=== PATIENT | female | born 1980 | race American Indian/Alaskan Native ===

== ENCOUNTER 2016-05-17 22:57 | Emergency (ER) | payer SELFPAY ==
[2016-05-17] MEDS ORDERED: TYLENOL ONE (23:41)
[2016-05-17] MEDS ORDERED: CATAPRES ONE (23:41)
[2016-05-18] MEDS ORDERED: CATAPRES PO ONE (00:25)
[2016-05-18] MEDS ORDERED: TYLENOL PO ONE (00:25)
[2016-05-18 00:52] LABS: Basophils % (Auto) 0.5 % (0.0-1.8); Eosinophils % (Auto) 1.8 % (0.0-4.3); Hematocrit 30.4 % (30.3-42.9); Hemoglobin 9.3 gm/dl (10.1-14.3); Mean Corpuscular HGB Conc 31 % (30-34); Mean Corpuscular Volume 76 fl (79-97); Platelet Count 230 K/mm3 (140-440); Red Blood Count 3.99 M/mm3 (3.65-5.03); White Blood Count 12.8 K/mm3 (4.5-11.0)
[2016-05-18 00:58] LABS: Mean Corpuscular Hemoglobin 23 pg (28-32)
[2016-05-18 01:16] LABS: Anion Gap 18 mmol/L; Blood Urea Nitrogen 7 mg/dL (7-17); Calcium 8.8 mg/dL (8.4-10.2); Carbon Dioxide 26 mmol/L (22-30); Chloride 102.3 mmol/L (98-107); Glucose 94 mg/dL (65-100); Potassium 4.1 mmol/L (3.6-5.0); Sodium 142 mmol/L (137-145)
--- NOTE | 2016-05-18 06:30 | Emergency Department Report ---
ED General Adult HPI - General Chief complaint: Sore Throat Stated complaint: SORE THROAT/FEVER/N/V/BODYACHES Time Seen by Provider: 05/18/16 06:29 Source: patient Mode of arrival: Ambulatory Limitations: No Limitations - History of Present Illness Initial comments: Patient complains of fever and myalgias last 2 days. She's been noncompliant with her blood pressure regimen. She has a sore throat. She denies difficulty in breathing. She is able to swallow. She's had no drooling, no rigors or chills. She denies any other ongoing medical problems. -: Gradual, days(s) Location: mouth (sore throat) Radiation: non-radiation Severity scale (0 -10): 0 Quality: aching Consistency: intermittent Improves with: none Worsens with: other (swallowing) Associated Symptoms: denies other symptoms Treatments Prior to Arrival: none - Related Data Home Medications Medication Instructions Recorded Confirmed Last Taken Methyldopa [Aldomet] mg PO BID 06/22/13 06/22/13 06/21/13 18:00 Previous Rx's Medication Instructions Recorded Last Taken Type Erythromycin [Erythromycin Ophth 1 cm OU QID #1 tube 06/22/13 Unknown Rx Oint] Neomy/Polymyx B/Hc (Otic) Soln 4 drops OT TID #1 bottle 06/22/13 Unknown Rx [Cortisporin (Otic) Soln] HYDROcodone/APAP 5-325 [[place] 1 - 2 each PO Q4-6H PRN #15 tablet 07/07/13 Unknown Rx 5/325 mg] Prednisone [Prednisone 10 mg 10 mg PO .TAPER #1 tab.ds.pk 07/07/13 Unknown Rx (6-Day Pack, 21 Tabs)] Azithromycin [Zithromax TAB] 500 mg PO QDAY #1 packet 05/18/16 Unknown Rx HYDROcodone/APAP 5-325 [[place] 1 each PO Q6HR PRN #14 tablet 05/18/16 Unknown Rx 5/325] Labetalol [Normodyne TAB] 100 mg PO BID #60 tablet 05/18/16 Unknown Rx Lisinopril/Hydrochlorothiazide 1 tab PO QDAY #30 tablet 05/18/16 Unknown Rx [Zestoretic 10-12.5 mg] Allergies Allergy/AdvReac Type Severity Reaction Status Date / Time acetaminophen [From Tylenol] Allergy Itching Verified 07/07/13 18:24 codeine Allergy Itching Verified 07/07/13 18:24 Penicillins Allergy Hives Verified 07/07/13 18:24 ED Review of Systems ROS: Stated complaint: SORE THROAT/FEVER/N/V/BODYACHES Other details as noted in HPI Constitutional: fever. denies: chills Eyes: denies: eye pain, eye discharge, vision change ENT: as per HPI, throat pain. denies: ear pain Respiratory: denies: cough, shortness of breath, wheezing Cardiovascular: denies: chest pain, palpitations Endocrine: no symptoms reported Gastrointestinal: denies: abdominal pain, nausea, diarrhea Genitourinary: denies: urgency, dysuria, discharge Musculoskeletal: denies: back pain, joint swelling, arthralgia Skin: denies: rash, lesions Neurological: denies: headache, weakness, paresthesias Psychiatric: denies: anxiety, depression Hematological/Lymphatic: denies: easy bleeding, easy bruising ED Past Medical Hx - Past Medical History Previous Medical History?: Yes Hx Hypertension: Yes Hx Kidney Stones: Yes Hx Asthma: Yes Additional medical history: mouth ulcers - Surgical History Past Surgical History?: Yes Additional Surgical History: kidney stone surgery x 2, oral ulcer biopsy (1998) , D&C - Social History Smoking Status: Current Every Day Smoker Substance Use Type: None - Medications Home Medications: Home Medications Medication Instructions Recorded Confirmed Last Taken Type Erythromycin [Erythromycin Ophth 1 cm OU QID #1 tube 06/22/13 Unknown Rx Oint] Methyldopa [Aldomet] mg PO BID 06/22/13 06/22/13 06/21/13 18:00 History Neomy/Polymyx B/Hc (Otic) Soln 4 drops OT TID #1 bottle 06/22/13 Unknown Rx [Cortisporin (Otic) Soln] HYDROcodone/APAP 5-325 [[place] 1 - 2 each PO Q4-6H PRN #15 tablet 07/07/13 Unknown Rx 5/325 mg] Prednisone [Prednisone 10 mg 10 mg PO .TAPER #1 tab.ds.pk 07/07/13 Unknown Rx (6-Day Pack, 21 Tabs)] Azithromycin [Zithromax TAB] 500 mg PO QDAY #1 packet 05/18/16 Unknown Rx HYDROcodone/APAP 5-325 [[place] 1 each PO Q6HR PRN #14 tablet 05/18/16 Unknown Rx 5/325] Labetalol [Normodyne TAB] 100 mg PO BID #60 tablet 05/18/16 Unknown Rx Lisinopril/Hydrochlorothiazide 1 tab PO QDAY #30 tablet 05/18/16 Unknown Rx [Zestoretic 10-12.5 mg] ED Physical Exam - General Limitations: No Limitations General appearance: alert, in no apparent distress - Head Head exam: Present: atraumatic, normocephalic - Eye Eye exam: Present: normal appearance, PERRL, EOMI. Absent: scleral icterus - ENT ENT exam: Present: mucous membranes dry, other (very poor visualization of the throat. ) - Neck Neck exam: Present: normal inspection, lymphadenopathy. Absent: tenderness, meningismus - Respiratory Respiratory exam: Present: normal lung sounds bilaterally. Absent: respiratory distress - Cardiovascular Cardiovascular Exam: Present: regular rate, normal rhythm. Absent: systolic murmur, diastolic murmur, rubs, gallop - GI/Abdominal GI/Abdominal exam: Present: soft, normal bowel sounds. Absent: distended, tenderness, guarding, rebound, rigid - Extremities Exam Extremities exam: Present: normal inspection - Back Exam Back exam: Present: normal inspection. Absent: CVA tenderness (R), CVA tenderness (L), muscle spasm, paraspinal tenderness, vertebral tenderness - Neurological Exam Neurological exam: Present: alert, oriented X3, CN II-XII intact. Absent: motor sensory deficit - Psychiatric Psychiatric exam: Present: normal affect, normal mood - Skin Skin exam: Present: warm, dry, intact, normal color. Absent: rash ED Course Vital Signs 05/17/16 05/17/16 05/18/16 23:30 23:45 00:34 Temperature 99.2 F Pulse Rate 106 H 106 H 106 H Respiratory 20 18 Rate Blood Pressure 211/125 197/119 Blood Pressure 211/125 [Right] O2 Sat by Pulse 100 100 Oximetry 05/18/16 05/18/16 05/18/16 05:48 05:53 06:00 Temperature 98.8 F Pulse Rate 97 H 97 H Respiratory 19 18 Rate Blood Pressure 155/108 Blood Pressure 169/102 [Right] O2 Sat by Pulse 96 98 98 Oximetry 05/18/16 05/18/1617 06:01 06:30 07:46 Temperature Pulse Rate Respiratory Rate Blood Pressure 155/108 137/107 Blood Pressure [Right] O2 Sat by Pulse 99 98 97 Oximetry 05/18/16 05/18/16 05/18/16 07:50 08:00 08:10 Temperature Pulse Rate 90 90 99 H Respiratory 14 15 20 Rate Blood Pressure 137/107 224/86 200/125 Blood Pressure [Right] O2 Sat by Pulse 91 91 77 L Oximetry 05/18/16 05/18/16 05/18/16 08:20 08:30 08:36 Temperature Pulse Rate 91 H 85 86 Respiratory 15 16 Rate Blood Pressure 200/125 200/125 200/125 Blood Pressure [Right] O2 Sat by Pulse 96 94 Oximetry 05/18/16 05/18/16 08:40 08:50 Temperature Pulse Rate 82 87 Respiratory 14 15 Rate Blood Pressure 200/125 177/92 Blood Pressure [Right] O2 Sat by Pulse 100 100 Oximetry - Reevaluation(s) Reevaluation #1: Patient received IV antibiotics, fluids and blood pressure management. She stated that she felt well enough to go home. She looked better hydrated. She appears nontoxic. She meets criteria for outpatient disposition. 05/18/16 09:13 ED Medical Decision Making - Lab Data Result diagrams: 05/18/16 00:34 05/18/16 00:34 Laboratory Results - last 24 hr 05/18/16 05/18/16 05/18/16 00:34 00:34 00:34 WBC 12.8 H RBC 3.99 Hgb 9.3 L Hct 30.4 MCV 76 L MCH 23 L MCHC 31 RDW 18.0 H Plt Count 230 Lymph % (Auto) 11.8 L [place] % (Auto) 8.8 H Eos % (Auto) 1.8 Baso % (Auto) 0.5 Lymph # 1.5 [place] # 1.1 H Eos # 0.2 Baso # 0.1 Seg Neutrophils % 77.1 H Seg Neutrophils # 9.9 H Sodium 142 Potassium 4.1 Chloride 102.3 Carbon Dioxide 26 Anion Gap 18 BUN 7 Creatinine 0.5 L Estimated GFR > 60 BUN/Creatinine Ratio 14.00 Glucose 94 Calcium 8.8 HCG, Qual Negative - EKG Data -: EKG Interpreted by [place] EKG shows normal: sinus rhythm, axis, intervals, QRS complexes, ST-T waves Rate: normal, tachycardia - EKG Data Interpretation: no acute changes - Radiology Data Radiology results: report reviewed interpreted by me: CT showed no evidence of abscess or deep neck infection no necrotic nodes. Critical care attestation.: If time is entered above; I have spent that time in minutes in the direct care of this critically ill patient, excluding procedure time. ED Disposition Clinical Impression: Uncontrolled hypertension Pharyngitis Qualifiers: Pharyngitis/tonsillitis etiology: unspecified etiology Qualified Code(s): J02.9 - Acute pharyngitis, unspecified Disposition: DISCHARGED TO HOME OR SELFCARE Is pt being admited?: No Does the pt Need Aspirin: No Condition: Stable Instructions: Hypertension (ED), Pharyngitis (ED) Additional Instructions: Adequate oral fluids is required. Rx for your blood pressure,, antibiotic and pain management. Return any worsening symptoms whatsoever. Medical follow-up is required. Prescriptions: Azithromycin [Zithromax TAB] 500 mg PO QDAY #1 packet HYDROcodone/APAP 5-325 [[place] 5/325] 1 each PO Q6HR PRN #14 tablet PRN Reason: Pain Labetalol [Normodyne TAB] 100 mg PO BID #60 tablet Lisinopril/Hydrochlorothiazide [Zestoretic 10-12.5 mg] 1 tab PO QDAY #30 tablet Referrals: PRIMARY CARE, [Primary Care Provider] - 3-5 Days [facility] [Provider Group] - 2-3 Days Time of Disposition: 09:20
[2016-05-18] MEDS ORDERED: CLEOCIN 600 MG/50 mL 600 MG/50 ML BAG IV ONE (06:37)
[2016-05-18] MEDS ORDERED: NACL 0.9% 1000 ML 1,000 ML IV ONE (06:38)
--- NOTE | 2016-05-18 07:48 | Cat Scan Report ---
CT NECK WITH CONTRAST: HISTORY: Swelling, evaluate for deep neck infection. TECHNIQUE: Helical CT following IV contrast. Sagittal and coronal reformatted images. FINDINGS: There are a few mildly enlarged bilateral jugular lymph nodes measuring up to 1.8 cm. No necrotic lymph nodes, parapharyngeal abscess or swelling is appreciated. The parotid and submandibular glands are normal. The carotid sheaths are intact. The thyroid gland is normal. The glottic structures are normal. The airway is patent. Strap musculature is unremarkable. Hyoid bone and thyroid cartilage are intact. There is mild mucosal thickening in the inferior maxillary sinuses, left greater than right. The remaining visualized sinuses and mastoid air cells are well-aerated. The imaged brain is unremarkable. The lung apices are clear. IMPRESSION: Mildly enlarged cervical lymph nodes which are probably reactive in nature. No abscess or necrotic lymph nodes identified. Mild chronic maxillary sinus disease.
[2016-05-18] MEDS ORDERED: NORMODYNE IV ONE ×2 (08:24→08:27)
[2016-05-18 09:39] VITALS: BP 175/91
== END 2016-05-18 09:39 | disposition home or self-care (01) ==
LOC: ED 22:57
DX: I10 Essential (primary) hypertension (principal); J02.9 Acute pharyngitis, unspecified; J45.909 Unspecified asthma, uncomplicated; F17.200 Nicotine dependence, unspecified, uncomplicated; Z88.0 Allergy status to penicillin; Z88.6 Allergy status to analgesic agent; Z88.8 Allergy status to other drugs, medicaments and biological substances
CPT/HCPCS: 36415; 70491; 80048; 84703; 85025; 87116; 87400; 87430; 93005; 93010; 96365; 96375; 99284; J7030; Q9967

== ENCOUNTER 2018-05-14 02:13 | Inpatient (IN) | payer MEDICAID ==
[2018-05-14] MEDS ORDERED: ASPIRIN PO ONE (02:29)
--- NOTE | 2018-05-14 02:56 | XRay Report ---
PROCEDURE: XR CHEST 1V AP TECHNIQUE: Single PA radiograph of the chest was obtained. HISTORY: Chest pain. COMPARISONS: None available. FINDINGS: Lung volumes mildly decreased. Subtle bibasilar opacities noted. Suggested mild blunting of right cos tophrenic angle. There is peribronchial thickening/cuffing noted centrally. Cardiac and mediastinal c ontours within normal limits. No subdiaphragmatic free air. IMPRESSION: Mildly increased interstitial markings/peribronchial cuffing and probable small right pleural effusio n suggestive of underlying viral process. There is no lobar consolidation. This document is electronically signed by Alfred Medrano DO., May 14 2018 02:54:56 AM ET
[2018-05-14 03:28] LABS: Basophils % (Auto) 0.4 % (0.0-1.8); Eosinophils # (Auto) 0.2 K/mm3 (0.0-0.4); Eosinophils % (Auto) 1.9 % (0.0-4.3); Hematocrit 26.8 % (30.3-42.9); Hemoglobin 8.4 gm/dl (10.1-14.3); Lymphocytes # (Auto) 1.7 K/mm3 (1.2-5.4); Lymphocytes % (Auto) 20.4 % (13.4-35.0); Mean Corpuscular HGB Conc 31 % (30-34); Mean Corpuscular Volume 72 fl (79-97); Monocytes # (Auto) 0.7 K/mm3 (0.0-0.8); Monocytes % (Auto) 8.3 % (0.0-7.3); Platelet Count 233 K/mm3 (140-440); Red Blood Count 3.74 M/mm3 (3.65-5.03)
[2018-05-14 03:34] LABS: Red Cell Distribution Width 20.6 % (13.2-15.2)
[2018-05-14 03:52] LABS: BUN/Creatinine Ratio 20; Blood Urea Nitrogen 6 mg/dL (7-17); Calcium 9.1 mg/dL (8.4-10.2); Hemolysis Index 17
[2018-05-14] MEDS ORDERED: NORMODYNE IV ONE (04:00)
[2018-05-14 04:37] LABS: INR 0.91 (0.87-1.13)
--- NOTE | 2018-05-14 05:33 | Ultrasound Report ---
PROCEDURE: US OB <= 14 WK FETUS ADD GEST TECHNIQUE: Limited transvaginal imaging was obtained of the pelvis for twin B HISTORY: abd pain COMPARISONS: None FINDINGS: There is a dichorionic diamniotic twin . Fetus B has a crown-rump length of 5.56 cm. This co rresponds to a 12 week 1 day IUP. The heartbeat is 173 BPM. IMPRESSION: Fetus B corresponds to 12 week 1 day IUP. The heartbeat is 173 BPM.. This document is electronically signed by James Leal MD., May 14 2018 05:30:38 AM ET
--- NOTE | 2018-05-14 05:35 | Ultrasound Report ---
PROCEDURE: US OB <= 14 WEEKS FETUS TECHNIQUE: Transabdominal imaging was obtained. HISTORY: abd pain COMPARISONS: None FINDINGS: There is a dichorionic diamniotic twin . For twin A, the crown-rump length is 53.5 mm corres ponding to a 12 week 0 day . The heartbeat is 173 BPM. The maternal ovaries are not se en. In some of is made of a fibroid in the lower uterine segment measuring 6.3 x 5.0 x 6.0 cm. The ma ternal ovaries not seen. IMPRESSION: Fetus a corresponds to a 12 week 0 day . The heart is 173 BPM. Incidental note is made of a fibroid in the lower uterine segment as described.. This document is electronically signed by James Leal MD., May 14 2018 05:33:00 AM ET
--- NOTE | 2018-05-14 05:37 | Ultrasound Report ---
PROCEDURE: US OB TRANSVAGINAL TECHNIQUE: Transvaginal imaging was obtained of the pelvis. HISTORY: abd pain COMPARISONS: None FINDINGS: There is a twin dichorionic diamniotic with 2 discrete gestational sacs. Fetus a correspond s to a 12 week 0 day IUP with fetus B corresponding to a 12 week 1 day IUP. The heart rate is 1 73 for both twins. There is no evidence of subchorionic hemorrhage. Free fluid is not seen in the pel vis. The maternal ovaries are not identified. There is a fibroid in the lower uterine segment measuri ng 6 cm in diameter. IMPRESSION: Dichorionic diamniotic twin corresponding to 12 weeks 1 day as described. Normal hear t rate of 173 BPM. Hypoechoic fibroid in the lower uterine segment noted. This document is electronically signed by James Leal MD., May 14 2018 05:34:55 AM ET
--- NOTE | 2018-05-14 05:46 | Emergency Department Report ---
ED Chest Pain HPI - General Chief Complaint: Chest Pain Stated Complaint: HEADACHE/CHEST PAIN Time Seen by Provider: 05/14/18 03:45 Source: patient Mode of arrival: Ambulatory Limitations: No Limitations - History of Present Illness Initial Comments: 38-year-old female with history of hypertension presents to ED with sharp left- sided chest pain, worse since yesterday. Patient reports mild shortness of breath. States pain radiates into her left arm. Patient states she has been having intermittent chest pain with exertion and dyspnea on exertion recently. Patient also reports headache, however, has been noncompliant with her amlodipine. Patient states she is currently , however does not know how far along she is at this time. States her menstrual periods are always irregular. Denies leg pain or swelling. Reports tobacco use. PCP: Shane Shi MD Complaint: chest pain -: days(s) (2) Onset: during exertion Pain Location: left chest Pain Radiation: LUE Severity: moderate Severity scale (0 -10): 8 Quality: sharp Consistency: intermittent Improves With: rest Worsens With: exertion re: dyspnea. denies: vomting, diaphoresis Other Symptoms: denies: cough, fever, leg swelling - Related Data Home Medications Medication Instructions Recorded Confirmed Last Taken Methyldopa [Aldomet] mg PO BID 06/22/13 06/22/13 06/21/13 18:00 Previous Rx's Medication Instructions Recorded Last Taken Type Erythromycin [Erythromycin Ophth 1 cm OU QID #1 tube 06/22/13 Unknown Rx Oint] Neomy/Polymyx B/Hc (Otic) Soln 4 drops OT TID #1 bottle 06/22/13 Unknown Rx [Cortisporin (Otic) Soln] HYDROcodone/APAP 5-325 [[place] 1 - 2 each PO Q4-6H PRN #15 tablet 07/07/13 Unknown Rx 5/325 mg] Prednisone [Prednisone 10 mg 10 mg PO .TAPER #1 tab.ds.pk 07/07/13 Unknown Rx (6-Day Pack, 21 Tabs)] Azithromycin [Zithromax TAB] 500 mg PO QDAY #1 packet 05/18/16 Unknown Rx HYDROcodone/APAP 5-325 [[place] 1 each PO Q6HR PRN #14 tablet 05/18/16 Unknown Rx 5/325] Labetalol [Normodyne TAB] 100 mg PO BID #60 tablet 05/18/16 Unknown Rx Lisinopril/Hydrochlorothiazide 1 tab PO QDAY #30 tablet 05/18/16 Unknown Rx [Zestoretic 10-12.5 mg] Allergies Allergy/AdvReac Type Severity Reaction Status Date / Time acetaminophen [From Tylenol] Allergy Itching Verified 05/14/18 04:13 codeine Allergy Itching Verified 05/14/18 04:13 oxycodone [From Percocet] Allergy Rash Verified 05/14/18 04:13 Penicillins Allergy Hives Verified 05/14/18 04:13 Heart Score - HEART Score History: Moderately suspicious EKG: Non-specific Age: < 45 Risk factors: > 3 risk factors or hx of atherosclerotic disease Troponin: < normal limit HEART Score: 4 ED Review of Systems ROS: Stated complaint: HEADACHE/CHEST PAIN Other details as noted in HPI Comment: All other systems reviewed and negative Respiratory: shortness of breath Cardiovascular: chest pain Gastrointestinal: denies: abdominal pain Musculoskeletal: other (denies leg pain or swelling) Neurological: headache ED Past Medical Hx - Past Medical History Previous Medical History?: Yes Hx Hypertension: Yes Hx Kidney Stones: Yes Hx Asthma: Yes Additional medical history: mouth ulcers - Surgical History Past Surgical History?: Yes Additional Surgical History: kidney stone surgery x 2, oral ulcer biopsy (1998), D&C - Social History Smoking Status: Current Every Day Smoker Substance Use Type: None - Medications Home Medications: Home Medications Medication Instructions Recorded Confirmed Last Taken Type Erythromycin [Erythromycin Ophth 1 cm OU QID #1 tube 06/22/13 Unknown Rx Oint] Methyldopa [Aldomet] mg PO BID 06/22/13 06/22/13 06/21/13 18:00 History Neomy/Polymyx B/Hc (Otic) Soln 4 drops OT TID #1 bottle 06/22/13 Unknown Rx [Cortisporin (Otic) Soln] HYDROcodone/APAP 5-325 [[place] 1 - 2 each PO Q4-6H PRN #15 tablet 07/07/13 Unknown Rx 5/325 mg] Prednisone [Prednisone 10 mg 10 mg PO .TAPER #1 tab.ds.pk 07/07/13 Unknown Rx (6-Day Pack, 21 Tabs)] Azithromycin [Zithromax TAB] 500 mg PO QDAY #1 packet 05/18/16 Unknown Rx HYDROcodone/APAP 5-325 [[place] 1 each PO Q6HR PRN #14 tablet 05/18/16 Unknown Rx 5/325] Labetalol [Normodyne TAB] 100 mg PO BID #60 tablet 05/18/16 Unknown Rx Lisinopril/Hydrochlorothiazide 1 tab PO QDAY #30 tablet 05/18/16 Unknown Rx [Zestoretic 10-12.5 mg] ED Physical Exam - General Limitations: No Limitations General appearance: alert, in no apparent distress, obese - Head Head exam: Present: atraumatic, normocephalic - Eye Eye exam: Present: normal appearance - ENT ENT exam: Present: mucous membranes moist - Neck Neck exam: Present: normal inspection - Respiratory Respiratory exam: Present: normal lung sounds bilaterally. Absent: respiratory distress - Cardiovascular Cardiovascular Exam: Present: regular rate, normal rhythm - GI/Abdominal GI/Abdominal exam: Present: soft. Absent: distended - Extremities Exam Extremities exam: Absent: pedal edema, calf tenderness - Neurological Exam Neurological exam: Present: alert, oriented X3, CN II-XII intact. Absent: motor sensory deficit - Psychiatric Psychiatric exam: Present: normal affect, normal mood - Skin Skin exam: Present: warm, dry, intact, normal color ED Course Vital Signs 05/14/18 05/14/18 05/14/18 02:24 04:41 05:40 Temperature 98.6 F 98.7 F Pulse Rate 109 H 109 H 89 Respiratory 18 18 Rate Blood Pressure 188/99 204/105 Blood Pressure 175/80 [Left] O2 Sat by Pulse 98 98 Oximetry ED Medical Decision Making - Lab Data Result diagrams: 05/14/18 03:20 05/14/18 03:20 - EKG Data -: EKG Interpreted by [place] EKG shows normal: sinus rhythm, axis, intervals, QRS complexes, ST-T waves Rate: tachycardia (rate 104) - EKG Data Interpretation: nonspecific ST-T wave gila - Radiology Data Radiology results: report reviewed - Medical Decision Making 38-year-old female with uncontrolled hypertension presents to the ED with report of dyspnea on exertion, chest pain with exertion, worse over the last 2 days. Patient initially hypertensive, also reported headache, likely hypertensive headache. Neuro exam normal. EKG unremarkable, troponin normal. D-dimer is negative. Patient given labetalol which did improve her blood pressure. However due to the character of the patient's pain, body habitus, uncontrolled hypertension, and tobacco use, will admit to hospitalist, Dr Romero, for further chest pain workup. Patient has no chest pain at this time. Ultrasound was done which does show a normal twin gestation at 12 weeks with normal cardiac activity. Patient is not having any abdominal pain or vaginal bleeding at this time. Patient not considered to have preeclampsia as she is only 12 weeks and has a history of chronic hypertension that is uncontrolled. - Differential Diagnosis ACS, hypertensive urgency, PE Critical care attestation.: If time is entered above; I have spent that time in minutes in the direct care of this critically ill patient, excluding procedure time. ED Disposition Clinical Impression: Twin gestation in first trimester, Chest pain, Hypertensive urgency Disposition: OP ADMIT IP TO THIS HOSP Is pt being admited?: Yes Condition: Stable Instructions: Chest Pain (ED) Time of Disposition: 05:56
[2018-05-14] MEDS ORDERED: ZOFRAN IV PRN (06:07)
[2018-05-14] MEDS ORDERED: SODIUM CHLORIDE FLUSH SYRINGE 10 ML IV PRN (06:07)
--- NOTE | 2018-05-14 06:16 | History and Physical Report ---
History of Present Illness Date of examination: 05/14/18 History of present illness: 38-year-old woman with a history of hypertension, asthma comes emergency room with complint of chest pain that started yesterday. She described the pain as a stabbing pain, constant, intensity 5/10, radiating to the left arm, cannot i dentify Marielos related factors. Admits to shortness of breath, nausea, no diaphoresis or palpitation. He is not taken her antihypertensive last 2 weeks, also complaining of a headache over the last 1-1/2 week Review of systems Constitutional: no weight loss, chills, fever Ears, eyes, nose, mouth and throat: no nasal congestion, no nasal discharge, no sinus pressure, no vision change, no red eye. Neck: No neck pain or rigidity. Cardiovascular: no palpitations, +chest pain Respiratory: no cough,+ shortness of breath Gastrointestinal: no hematochezia, abdominal pain Genitourinary : no frequency , no hematuria Musculoskeletal: no joint swelling or muscle ache Integumentary: no rash, no pruritis Neurological: no parathesias, no focal weakness Endocrine: no cold or heat intolerance, no polyuria or polydipsia Hematologic/Lymphatic: no easy bruising, no easy bleeding, no gland swelling Allergic/Immunologic: no urticaria, no angioedema. PAST MEDICAL HISTORY:hypertension, asthma PAST SURGICAL HISTORY: Surgery for kidney stone SOCIAL HISTORY: Denies alcohol, drugs, tobacco FAMILY HISTORY: Hypertension Medications and Allergies Allergies Allergy/AdvReac Type Severity Reaction Status Date / Time acetaminophen [From Tylenol] Allergy Itching Verified 05/14/18 04:13 codeine Allergy Itching Verified 05/14/18 04:13 oxycodone [From Percocet] Allergy Rash Verified 05/14/18 04:13 Penicillins Allergy Hives Verified 05/14/18 04:13 Home Medications Medication Instructions Recorded Confirmed Last Taken Type Erythromycin [Erythromycin Ophth 1 cm OU QID #1 tube 06/22/13 Unknown Rx Oint] Methyldopa [Aldomet] mg PO BID 06/22/13 06/22/13 06/21/13 18:00 History Neomy/Polymyx B/Hc (Otic) Soln 4 drops OT TID #1 bottle 06/22/13 Unknown Rx [Cortisporin (Otic) Soln] HYDROcodone/APAP 5-325 [[place] 1 - 2 each PO Q4-6H PRN #15 tablet 07/07/13 Unknown Rx 5/325 mg] Prednisone [Prednisone 10 mg 10 mg PO .TAPER #1 tab.ds.pk 07/07/13 Unknown Rx (6-Day Pack, 21 Tabs)] Azithromycin [Zithromax TAB] 500 mg PO QDAY #1 packet 05/18/16 Unknown Rx HYDROcodone/APAP 5-325 [[place] 1 each PO Q6HR PRN #14 tablet 05/18/16 Unknown Rx 5/325] Labetalol [Normodyne TAB] 100 mg PO BID #60 tablet 05/18/16 Unknown Rx Lisinopril/Hydrochlorothiazide 1 tab PO QDAY #30 tablet 05/18/16 Unknown Rx [Zestoretic 10-12.5 mg] Active Meds: Active Medications Enoxaparin Sodium (Lovenox) 30 mg SUB-Q QDAY [facility] Labetalol HCl (Normodyne) 100 mg PO BID [facility] Ondansetron HCl (Zofran) 4 mg IV Q4H PRN PRN Reason: Nausea And Vomiting Sodium Chloride (Sodium Chloride Flush Syringe 10 Ml) 10 ml IV BID [facility] Sodium Chloride (Sodium Chloride Flush Syringe 10 Ml) 10 ml IV PRN PRN PRN Reason: LINE FLUSH Exam - Physical Exam Narrative exam: General Apperance: The patient lying in bed, breathing comfortable HEENT: Normocephalic, atraumatic. Pupils equally round and reactive to light, EOMI, no sclericterus or JVD or thyromegaly or nodule. , no carotid bruit, mucous membranes moist, no exudate or erythema Heart: S1-S2, regular is rhythm Lungs: Clear to auscultation bilaterally, breathing comfortable Abdomen: Positive bowel sounds, soft, nontender, nondistended, no organomegaly Extremities: No edema cyanosis clubbing Skin: no rash, nodule, warm and dry Neuro: cranial nerves 2-12 intact, speech is fluent, motor/sensory intact - Constitutional Vitals: Temp Pulse Resp BP Pulse Ox 98.7 F 89 18 175/80 98 05/14/18 05:40 05/14/18 05:40 05/14/18 05:40 05/14/18 05:40 05/14/18 05:40 Results - Labs CBC & Chem 7: 05/14/18 03:20 05/14/18 03:20 Labs: Abnormal lab results 05/14/18 05/14/18 05/14/18 Range/Units 03:20 03:20 03:20 Hgb 8.4 L (10.1-14.3) gm/dl Hct 26.8 L (30.3-42.9) % MCV 72 L (79-97) fl MCH 22 L (28-32) pg RDW 20.6 H (13.2-15.2) % [place] % (Auto) 8.3 H (0.0-7.3) % Sodium 136 L (137-145) mmol/L Potassium 3.2 L (3.6-5.0) mmol/L BUN 6 L (7-17) mg/dL Creatinine 0.3 L (0.7-1.2) mg/dL Glucose 146 H (65-100) mg/dL HCG, Quant 303835 H (0-4) mIU/mL - Imaging and Cardiology EKG: report reviewed Chest x-ray: report reviewed Assessment and Plan Assessment Extensive urgency Chest pain secondary to #1 Plan Admit to medicine Check cardiac enzymes, echo, consult cardiology Start Multivitamin, oral labetalol DVT prophylaxis
[2018-05-14 07:31] LABS: Creatine Kinase MB 1.1 ng/mL (0.0-4.0)
[2018-05-14] MEDS ORDERED: NORMODYNE PO SCH (10:00)
[2018-05-14] MEDS ORDERED: LOVENOX SUB-Q SCH (10:00)
[2018-05-14] MEDS ORDERED: NORMODYNE ONE ×2 (10:07→15:31)
[2018-05-14] MEDS ORDERED: LOVENOX SUB-Q ONE (10:07)
[2018-05-14] MEDS: LOVENOX SUB-Q SCH (10:14)
--- NOTE | 2018-05-14 11:30 | Consultation ---
History of Present Illness Consult date: 05/14/18 Requesting physician: SUSAN ESPARZA Consult reason: chest pain History of present illness: The patient has a history of chronically uncontrolled hypertension. Yesterday morning, she developed precordial chest pressure radiating to her left upper arm and associated with headache. There is no nausea, vomiting, or shortness of breath. She claims that she found out that she was one week ago. Transvaginal ultrasound suggests a twin at 12 weeks gestation. Past History Past Medical History: hypertension, other (Asthma) Past Surgical History: Other (D & C; surgery for renal stones) Social history: smoking. denies: alcohol abuse Family history: denies: CAD Medications and Allergies Allergies Allergy/AdvReac Type Severity Reaction Status Date / Time acetaminophen [From Tylenol] Allergy Itching Verified 05/14/18 04:13 codeine Allergy Itching Verified 05/14/18 04:13 oxycodone [From Percocet] Allergy Rash Verified 05/14/18 04:13 Penicillins Allergy Hives Verified 05/14/18 04:13 Home Medications Medication Instructions Recorded Confirmed Last Taken Type No Known Home Medications [No 05/14/18 05/14/18 Unknown History Reported Home Medications] Active Meds: Active Medications Enoxaparin Sodium (Lovenox) 40 mg SUB-Q QDAY@1000 [facility] Last Admin: 05/14/18 10:14 Dose: 40 mg Documented by: Labetalol HCl (Normodyne) 100 mg PO BID [facility] Last Admin: 05/14/18 10:14 Dose: 100 mg Documented by: Ondansetron HCl (Zofran) 4 mg IV Q4H PRN PRN Reason: Nausea And Vomiting Sodium Chloride (Sodium Chloride Flush Syringe 10 Ml) 10 ml IV BID [facility] Sodium Chloride (Sodium Chloride Flush Syringe 10 Ml) 10 ml IV PRN PRN PRN Reason: LINE FLUSH Review of Systems Constitutional: no fever, no chills Ears, nose, mouth and throat: no ear pain, no ear discharge, no sore throat Cardiovascular: chest pain, no palpitations, no lightheadedness, no shortness of breath Respiratory: no cough, no hemoptysis, no shortness of breath Gastrointestinal: no nausea, no vomiting, no diarrhea, no constipation Genitourinary Female: no dysuria, no urinary frequency Rectal: no pain, no bleeding Musculoskeletal: no neck stiffness, no neck pain, no myalgias Integumentary: no rash, no pruritis Neurological: headaches, no weakness, no parathesias Endocrine: no cold intolerance, no heat intolerance Hematologic/Lymphatic: no easy bruising, no easy bleeding Allergic/Immunologic: no urticaria, no angioedema Physical Examination Vital Signs Temp Pulse Resp BP Pulse Ox 98.6 F 109 H 18 188/99 98 05/14/18 02:24 05/14/18 02:24 05/14/18 02:24 05/14/18 02:24 05/14/18 02:24 General appearance: no acute distress HEENT: Positive: EOMI, Normocephaly, Mucus Membranes Moist Neck: Positive: neck supple, trachea midline Cardiac: Positive: Reg Rate and Rhythm, S1/S2 Lungs: Positive: clear to auscultation Neuro: Positive: Grossly Intact Abdomen: Positive: Soft, Active Bowel Sounds. Negative: Tender Skin: Positive: Clear. Negative: Rash Musculoskeletal: Normal Range of Motion Extremities: Present: normal. Absent: edema Results 05/14/18 03:20 05/14/18 03:20 Cardiac Enzymes 05/14/18 Range/Units 07:03 CK-MB (CK-2) 1.1 (0.0-4.0) ng/mL Coagulation 05/14/18 Range/Units 04:12 PT 12.8 (12.2-14.9) Sec. INR 0.91 (0.87-1.13) APTT 28.0 (24.2-36.6) Sec. CBC 05/14/18 Range/Units 03:20 WBC 8.2 (4.5-11.0) K/mm3 RBC 3.74 (3.65-5.03) M/mm3 Hgb 8.4 L (10.1-14.3) gm/dl Hct 26.8 L (30.3-42.9) % Plt Count 233 (140-440) K/mm3 Lymph # 1.7 (1.2-5.4) K/mm3 [place] # 0.7 (0.0-0.8) K/mm3 Eos # 0.2 (0.0-0.4) K/mm3 Baso # 0.0 (0.0-0.1) K/mm3 Comprehensive Metabolic Panel 05/14/18 Range/Units 03:20 Sodium 136 L (137-145) mmol/L Potassium 3.2 L (3.6-5.0) mmol/L Chloride 102.8 (98-107) mmol/L Carbon Dioxide 24 (22-30) mmol/L BUN 6 L (7-17) mg/dL Creatinine 0.3 L (0.7-1.2) mg/dL Glucose 146 H (65-100) mg/dL Calcium 9.1 (8.4-10.2) mg/dL - Imaging and Cardiology EKG: image reviewed EKG interpretations - Telemetry EKG Rhythm: Sinus Tachycardia - EKG Sinus rhythms and dysrhythmias: sinus tachycardia Assessment and Plan Optimize antihypertensive regimen. Obtain echocardiogram. Potassium supplementation. - Patient Problems (1) Chest pain Current Visit: Yes Status: Acute (2) Uncontrolled hypertension Current Visit: Yes Status: Chronic (3) Asthma Current Visit: Yes Status: Chronic Qualifiers: Asthma severity: mild (4) Twin gestation in first trimester Current Visit: Yes Status: Chronic (5) Morbid obesity Current Visit: Yes Status: Chronic
[2018-05-14] MEDS: NORMODYNE PO SCH ×2 (15:32→21:00)
--- NOTE | 2018-05-14 16:25 | Progress Note ---
Assessment and Plan Assessment and plan: 38-year-old woman with a history of hypertension, asthma comes emergency room with complint of chest pain that started yesterday. She described the pain as a stabbing pain, constant, intensity 5/10, radiating to the left arm, cannot identify Marielos related factors. Admits to shortness of breath, nausea, no diaphoresis or palpitation. He is not taken her antihypertensive last 2 weeks, also complaining of a headache over the last 1-1/2 week Extensive urgency Chest pain secondary to #1 Admit to medicine Check cardiac enzymes, echo, consult cardiology Start Multivitamin, oral labetalol DVT prophylaxis prolonged inpatient services 31 minutes History Interval history: Patient was seen and examined. Follow-up on current diagnosis of chest pains. Overnight uneventful. Patient denies any shortness breath, nausea/vomiting or severe headaches. Imaging, nursing note, chart, labs and old chart reviewed. Discussed with patient. Hospitalist Physical - Physical exam Narrative exam: Gen: WDWN, NAD, Awake, Alert, Orientated HEENT: NCAT, EOMI, PERRL, OP Clear Neck: supple, no adenopathy, no thyromegaly, no JVD CVS/Heart: RRR, normal S1S2, pulses present bilaterally Chest/Lungs: CTA B, Symmetrical chest expansion, good air entry bilaterally GI/Abdomen: soft, NTND, good bowel sounds, no guarding or rebound /Bladder: no suprapubic tenderness, no CVA or paraspinal tenderness Extermity/Skin: no c/c/e, no obvious rash MSK: FROM x 4 Neuro: CN 2-12 grossly intact, no new focal deficits Psych: calm - Constitutional Vitals: Temp Pulse Resp BP Pulse Ox 98.7 F 93 H 26 H 170/90 98 05/14/18 05:40 05/14/18 15:32 05/14/18 14:16 05/14/18 15:32 05/14/18 12:00 General appearance: Present: no acute distress Results - Labs CBC & Chem 7: 05/14/18 03:20 05/14/18 03:20 Labs: Laboratory Last Values WBC 8.2 K/mm3 (4.5-11.0) 05/14/18 03:20 RBC 3.74 M/mm3 (3.65-5.03) 05/14/18 03:20 Hgb 8.4 gm/dl (10.1-14.3) L 05/14/18 03:20 Hct 26.8 % (30.3-42.9) L 05/14/18 03:20 MCV 72 fl (79-97) L 05/14/18 03:20 MCH 22 pg (28-32) L 05/14/18 03:20 MCHC 31 % (30-34) 05/14/18 03:20 RDW 20.6 % (13.2-15.2) H 05/14/18 03:20 Plt Count 233 K/mm3 (140-440) 05/14/18 03:20 Lymph % (Auto) 20.4 % (13.4-35.0) 05/14/18 03:20 [place] % (Auto) 8.3 % (0.0-7.3) H 05/14/18 03:20 Eos % (Auto) 1.9 % (0.0-4.3) 05/14/18 03:20 Baso % (Auto) 0.4 % (0.0-1.8) 05/14/18 03:20 Lymph # 1.7 K/mm3 (1.2-5.4) 05/14/18 03:20 [place] # 0.7 K/mm3 (0.0-0.8) 05/14/18 03:20 Eos # 0.2 K/mm3 (0.0-0.4) 05/14/18 03:20 Baso # 0.0 K/mm3 (0.0-0.1) 05/14/18 03:20 Seg Neutrophils % 69.0 % (40.0-70.0) 05/14/18 03:20 Seg Neutrophils # 5.7 K/mm3 (1.8-7.7) 05/14/18 03:20 PT 12.8 Sec. (12.2-14.9) 05/14/18 04:12 INR 0.91 (0.87-1.13) 05/14/18 04:12 APTT 28.0 Sec. (24.2-36.6) 05/14/18 04:12 D-Dimer < 135 ng/mlDDU (0-234) 05/14/18 04:12 Sodium 136 mmol/L (137-145) L 05/14/18 03:20 Potassium 3.2 mmol/L (3.6-5.0) L 05/14/18 03:20 Chloride 102.8 mmol/L (98-107) 05/14/18 03:20 Carbon Dioxide 24 mmol/L (22-30) 05/14/18 03:20 Anion Gap 12 mmol/L 05/14/18 03:20 BUN 6 mg/dL (7-17) L 05/14/18 03:20 Creatinine 0.3 mg/dL (0.7-1.2) L 05/14/18 03:20 Estimated GFR > 60 ml/min 05/14/18 03:20 BUN/Creatinine Ratio 20 % 05/14/18 03:20 Glucose 146 mg/dL (65-100) H 05/14/18 03:20 Calcium 9.1 mg/dL (8.4-10.2) 05/14/18 03:20 Total Creatine Kinase 67 units/L (30-135) 05/14/18 07:03 CK-MB (CK-2) 1.1 ng/mL (0.0-4.0) 05/14/18 07:03 CK-MB (CK-2) Rel Index 1.6 (0-4) 05/14/18 07:03 Troponin T < 0.010 ng/mL (0.00-0.029) 05/14/18 08:14 HCG, Quant 256009 mIU/mL (0-4) H 05/14/18 03:20
[2018-05-14 17:57] LABS: Creatine Kinase MB 1.4 ng/mL (0.0-4.0)
[2018-05-14] MEDS: SODIUM CHLORIDE FLUSH SYRINGE 10 ML IV SCH (21:00)
[2018-05-15] MEDS ORDERED: NORMODYNE PO ONE ×2 (01:29→06:10)
[2018-05-15 05:02] LABS: Basophils % (Auto) 0.5 % (0.0-1.8); Eosinophils # (Auto) 0.2 K/mm3 (0.0-0.4); Eosinophils % (Auto) 2.7 % (0.0-4.3); Hematocrit 25.3 % (30.3-42.9); Hemoglobin 7.9 gm/dl (10.1-14.3); Lymphocytes # (Auto) 1.7 K/mm3 (1.2-5.4); Lymphocytes % (Auto) 23.3 % (13.4-35.0); Mean Corpuscular HGB Conc 31 % (30-34); Mean Corpuscular Volume 72 fl (79-97); Monocytes # (Auto) 0.6 K/mm3 (0.0-0.8); Monocytes % (Auto) 8.7 % (0.0-7.3); Platelet Count 210 K/mm3 (140-440); Red Blood Count 3.51 M/mm3 (3.65-5.03)
[2018-05-15 05:06] LABS: Red Cell Distribution Width 21.2 % (13.2-15.2)
[2018-05-15 05:25] LABS: BUN/Creatinine Ratio 17; Blood Urea Nitrogen 5 mg/dL (7-17); Calcium 8.7 mg/dL (8.4-10.2); Hemolysis Index 0
[2018-05-15] MEDS: SODIUM CHLORIDE FLUSH SYRINGE 10 ML IV SCH ×3 (10:13→21:45)
[2018-05-15] MEDS: LOVENOX SUB-Q SCH (10:30)
[2018-05-15] MEDS: NORMODYNE PO SCH ×3 (10:31→21:44)
[2018-05-15] MEDS: PROCARDIA XL PO SCH (10:32)
[2018-05-15] MEDS ORDERED: K-DUR PO ONE ×2 (11:00→18:00)
--- NOTE | 2018-05-15 11:21 | Progress Note ---
Assessment and Plan Optimize antihypertensive regimen - increase labetalol and initiate nifedipine. Obtain echocardiogram. Potassium supplementation. H/H noted to be trending downwards. Further eval/management per primary. The patient has been seen in conjunction with Dr. Goins who agrees with the assessment and plan of care. - Patient Problems (1) Chest pain Current Visit: Yes Status: Acute (2) Uncontrolled hypertension Current Visit: Yes Status: Chronic (3) Asthma Current Visit: Yes Status: Chronic Qualifiers: Asthma severity: mild (4) Anemia Current Visit: Yes Status: Acute (5) Twin gestation in first trimester Current Visit: Yes Status: Chronic (6) Morbid obesity Current Visit: Yes Status: Chronic Subjective Date of service: 05/15/18 Principal diagnosis: HTN; cp Interval history: pt resting in bed, no current cardiac complaints. BPs remain elevated. Objective Last Vital Signs Temp 98.3 F 05/15/18 09:37 Pulse 87 05/15/18 10:50 Resp 20 05/15/18 09:37 BP 153/79 05/15/18 10:31 Pulse Ox 98 05/15/18 10:00 - Physical Examination General: No Apparent Distress HEENT: Positive: EOMI, Normocephaly, Mucus Membranes Moist Neck: Positive: neck supple, trachea midline Cardiac: Positive: Reg Rate and Rhythm, S1/S2 Lungs: Positive: Decreased Breath Sounds Neuro: Positive: Grossly Intact Abdomen: Positive: Soft, Active Bowel Sounds. Negative: Tender Skin: Positive: Clear. Negative: Rash Musculoskeletal: Normal Range of Motion Extremities: Present: normal. Absent: edema - Labs and Meds Cardiac Enzymes 05/14/18 Range/Units 16:55 CK-MB (CK-2) 1.4 (0.0-4.0) ng/mL CBC 05/15/18 Range/Units 04:31 WBC 7.2 (4.5-11.0) K/mm3 RBC 3.51 L (3.65-5.03) M/mm3 Hgb 7.9 L (10.1-14.3) gm/dl Hct 25.3 L (30.3-42.9) % Plt Count 210 (140-440) K/mm3 Lymph # 1.7 (1.2-5.4) K/mm3 [place] # 0.6 (0.0-0.8) K/mm3 Eos # 0.2 (0.0-0.4) K/mm3 Baso # 0.0 (0.0-0.1) K/mm3 Comprehensive Metabolic Panel 05/15/18 Range/Units 04:31 Sodium 138 (137-145) mmol/L Potassium 3.4 L (3.6-5.0) mmol/L Chloride 102.2 (98-107) mmol/L Carbon Dioxide 23 (22-30) mmol/L BUN 5 L (7-17) mg/dL Creatinine 0.3 L (0.7-1.2) mg/dL Glucose 97 (65-100) mg/dL Calcium 8.7 (8.4-10.2) mg/dL - Imaging and Cardiology EKG: image reviewed - EKG Sinus rhythms and dysrhythmias: sinus tachycardia
--- NOTE | 2018-05-15 13:28 | Consultation ---
History of Present Illness Consult date: 05/15/18 Reason for consult: other () History of present illness: 38y/o @ 12+1 weeks presents to the emergency department with the complai nt chest pain. The patient was made aware that she was approximately 1 week ago. She presents with a history of chronic hypertension. Patient was admitted to rule out cardiac etiology for her chest pain. Obstetrical ultrasound demonstrated findings of a viable twin gestation and also a leiomyoma in the lower uterine segment measuring 6.3 cm. The patient currently denies any vaginal bleeding or pelvic pain. She states a history of chronic hypertension since 2009. 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 Social history: - Obstetrical History Expected Date of Delivery: 11/26/18 Actual Gestation: 12 Week(s) 1 Day(s) : 6 Para: 4 Hx # Term Pregnancies: 4 Number of Pregnancies: 0 Spontaneous Abortions: 1 Induced : 0 Number of Living Children: 4 Medications and Allergies Allergies Allergy/AdvReac Type Severity Reaction Status Date / Time acetaminophen [From Tylenol] Allergy Itching Verified 05/14/18 04:13 codeine Allergy Itching Verified 05/14/18 04:13 oxycodone [From Percocet] Allergy Rash Verified 05/14/18 04:13 Penicillins Allergy Hives Verified 05/14/18 04:13 Home Medications Medication Instructions Recorded Confirmed Last Taken Type No Known Home Medications [No 05/14/18 05/14/18 Unknown History Reported Home Medications] Active Meds: Active Medications Enoxaparin Sodium (Lovenox) 40 mg SUB-Q QDAY@1000 [facility] Last Admin: 05/15/18 10:30 Dose: 40 mg Documented by: Labetalol HCl (Normodyne) 400 mg PO BID [facility] Last Admin: 05/15/18 10:31 Dose: 400 mg Documented by: Nifedipine (Procardia Xl) 60 mg PO QDAY [facility] Last Admin: 05/15/18 10:32 Dose: 60 mg Documented by: Ondansetron HCl (Zofran) 4 mg IV Q4H PRN PRN Reason: Nausea And Vomiting Sodium Chloride (Sodium Chloride Flush Syringe 10 Ml) 10 ml IV BID [facility] Last Admin: 05/15/18 10:13 Dose: 10 ml Documented by: Sodium Chloride (Sodium Chloride Flush Syringe 10 Ml) 10 ml IV PRN PRN PRN Reason: LINE FLUSH Review of Systems Cardiovascular: chest pain Genitourinary: no vaginal bleeding, no leakage of fluid, no contractions - Vital Signs Vital signs: Vital Signs Temp Pulse Resp BP Pulse Ox 98.6 F 109 H 18 188/99 98 05/14/18 02:24 05/14/18 02:24 05/14/18 02:24 05/14/18 02:24 05/14/18 02:24 Temp Pulse Resp BP Pulse Ox 98.3 F 87 20 153/79 98 05/15/18 09:37 05/15/18 10:50 05/15/18 09:37 05/15/18 10:31 05/15/18 10:00 Results Result Diagrams: 05/15/18 04:31 05/15/18 04:31 Abnormal lab results 05/15/18 05/15/18 Range/Units 04:31 04:31 RBC 3.51 L (3.65-5.03) M/mm3 Hgb 7.9 L (10.1-14.3) gm/dl Hct 25.3 L (30.3-42.9) % MCV 72 L (79-97) fl MCH 22 L (28-32) pg RDW 21.2 H (13.2-15.2) % [place] % (Auto) 8.7 H (0.0-7.3) % Potassium 3.4 L (3.6-5.0) mmol/L BUN 5 L (7-17) mg/dL Creatinine 0.3 L (0.7-1.2) mg/dL All other labs normal. Assessment and Plan - Patient Problems (1) Anemia Current Visit: Yes Status: Acute Plan to address problem: agree with use of labetalol and nifedipine for control of hypertension aldomet is another option for anti-hypertensives that is compatible with recommend 24hr urine collection for protein and creatinine clearance if patient is not being discharged today give consideration to transfusion of prbcs or IV iron while hospitalized; patient's hemodynamic status is likely not going to improve secondary to hemodilution during recommend an early 1 hour glucola secondary to increased risk of gestational diabetes with her morbid obesity draw uric acid and liver function testing for baseline PIH work up (2) Chest pain Current Visit: Yes Status: Acute (3) Twin gestation in first trimester Current Visit: Yes Status: Chronic (4) Uncontrolled hypertension Current Visit: Yes Status: Chronic
[2018-05-15] MEDS ORDERED: K-DUR PO NR (14:30)
--- NOTE | 2018-05-15 16:29 | Progress Note ---
Assessment and Plan Assessment and plan: Patient is 38-year-old woman with a history of hypertension and asthma who presented to [facility] ED with chest pains. She reports being 12 weeks with twins. * 2D ECHO: moderate concentric LVH, trace TR, estimated EF 60-65%, RV mildly dilated, RVSF normal -Hypertension urgency, still uncontrolled: Cardiology increased antihypertensives and I also consulted porcelain waxer -Chest pain secondary to #1 -12 weeks , high risk: consulted manager plan, they are screening for preeclampsia, started pre- vitamins -Morbid obese, bmi 58 History Interval history: Patient was seen and examined. Follow-up on current diagnosis of chest pains, resolved. Overnight uneventful. Patient denies any shortness breath, nausea/vomiting or severe headaches. Imaging, nursing note, chart, labs and old chart reviewed. Discussed with patient. Hospitalist Physical - Physical exam Narrative exam: Gen: WDWN, NAD, Awake, Alert, Orientated x 3, bmi 58 HEENT: NCAT, EOMI, PERRL, OP Clear Neck: supple, no adenopathy, no thyromegaly, no JVD CVS/Heart: RRR, normal S1S2, pulses present bilaterally Chest/Lungs: CTA B, Symmetrical chest expansion, good air entry bilaterally GI/Abdomen: soft, NTND, good bowel sounds, no guarding or rebound /Bladder: no suprapubic tenderness, no CVA or paraspinal tenderness Extermity/Skin: no c/c/e, no obvious rash MSK: FROM x 4 Neuro: CN 2-12 grossly intact, no new focal deficits Psych: calm - Constitutional Vitals: Temp Pulse Resp BP Pulse Ox 98.6 F 87 18 114/57 96 05/15/18 15:02 05/15/18 15:02 05/15/18 15:02 05/15/18 15:00 05/15/18 15:02 General appearance: Present: no acute distress Results - Labs CBC & Chem 7: 05/15/18 04:31 05/15/18 04:31 Labs: Laboratory Last Values WBC 7.2 K/mm3 (4.5-11.0) 05/15/18 04:31 RBC 3.51 M/mm3 (3.65-5.03) L 05/15/18 04:31 Hgb 7.9 gm/dl (10.1-14.3) L 05/15/18 04:31 Hct 25.3 % (30.3-42.9) L 05/15/18 04:31 MCV 72 fl (79-97) L 05/15/18 04:31 MCH 22 pg (28-32) L 05/15/18 04:31 MCHC 31 % (30-34) 05/15/18 04:31 RDW 21.2 % (13.2-15.2) H 05/15/18 04:31 Plt Count 210 K/mm3 (140-440) 05/15/18 04:31 Lymph % (Auto) 23.3 % (13.4-35.0) 05/15/18 04:31 [place] % (Auto) 8.7 % (0.0-7.3) H 05/15/18 04:31 Eos % (Auto) 2.7 % (0.0-4.3) 05/15/18 04:31 Baso % (Auto) 0.5 % (0.0-1.8) 05/15/18 04:31 Lymph # 1.7 K/mm3 (1.2-5.4) 05/15/18 04:31 [place] # 0.6 K/mm3 (0.0-0.8) 05/15/18 04:31 Eos # 0.2 K/mm3 (0.0-0.4) 05/15/18 04:31 Baso # 0.0 K/mm3 (0.0-0.1) 05/15/18 04:31 Seg Neutrophils % 64.8 % (40.0-70.0) 05/15/18 04:31 Seg Neutrophils # 4.7 K/mm3 (1.8-7.7) 05/15/18 04:31 PT 12.8 Sec. (12.2-14.9) 05/14/18 04:12 INR 0.91 (0.87-1.13) 05/14/18 04:12 APTT 28.0 Sec. (24.2-36.6) 05/14/18 04:12 D-Dimer < 135 ng/mlDDU (0-234) 05/14/18 04:12 Sodium 138 mmol/L (137-145) 05/15/18 04:31 Potassium 3.4 mmol/L (3.6-5.0) L 05/15/18 04:31 Chloride 102.2 mmol/L (98-107) 05/15/18 04:31 Carbon Dioxide 23 mmol/L (22-30) 05/15/18 04:31 Anion Gap 16 mmol/L 05/15/18 04:31 BUN 5 mg/dL (7-17) L 05/15/18 04:31 Creatinine 0.3 mg/dL (0.7-1.2) L 05/15/18 04:31 Estimated GFR > 60 ml/min 05/15/18 04:31 BUN/Creatinine Ratio 17 % 05/15/18 04:31 Glucose 97 mg/dL (65-100) 05/15/18 04:31 Calcium 8.7 mg/dL (8.4-10.2) 05/15/18 04:31 Total Creatine Kinase 54 units/L (30-135) 05/14/18 16:55 CK-MB (CK-2) 1.4 ng/mL (0.0-4.0) 05/14/18 16:55 CK-MB (CK-2) Rel Index 2.5 (0-4) 05/14/18 16:55 Troponin T < 0.010 ng/mL (0.00-0.029) 05/14/18 16:55 HCG, Quant [id number] mIU/mL (0-4) H 05/14/18 03:20
[2018-05-16] MEDS: LOVENOX SUB-Q SCH (09:08)
[2018-05-16] MEDS: NORMODYNE PO SCH ×2 (09:08→22:38)
[2018-05-16] MEDS: SODIUM CHLORIDE FLUSH SYRINGE 10 ML IV SCH ×2 (09:09→22:39)
[2018-05-16] MEDS: PROCARDIA XL PO SCH (09:09)
--- NOTE | 2018-05-16 12:40 | Progress Note ---
Assessment and Plan Assessment and plan: Patient is 38-year-old woman with a history of hypertension and asthma who presented to [facility] ED with chest pains. She reports being 12 weeks with twins. * 2D ECHO: moderate concentric LVH, trace TR, estimated EF 60-65%, RV mildly dilated, RVSF normal -Hypertension urgency, still uncontrolled: Cardiology increased antihypertensives and I also consulted forensic structural engineer -Chest pain secondary to #1 -12 weeks , high risk: consulted geographic area intelligence officer, they are screening for pre- eclampsia, started pre- vitamins -Morbid obese, bmi 58 Bp still not at goal, SBP of 140 or less History Interval history: Patient was seen and examined. Follow-up on current diagnosis of chest pains, resolved. Overnight uneventful. Patient denies any shortness breath, nausea/vomiting or severe headaches. Imaging, nursing note, chart, labs and old chart reviewed. Discussed with patient. Hospitalist Physical - Physical exam Narrative exam: Gen: WDWN, NAD, Awake, Alert, Orientated x 3, bmi 58 HEENT: NCAT, EOMI, PERRL, OP Clear Neck: supple, no adenopathy, no thyromegaly, no JVD CVS/Heart: RRR, normal S1S2, pulses present bilaterally Chest/Lungs: CTA B, Symmetrical chest expansion, good air entry bilaterally GI/Abdomen: soft, NTND, good bowel sounds, no guarding or rebound /Bladder: no suprapubic tenderness, no CVA or paraspinal tenderness Extermity/Skin: no c/c/e, no obvious rash MSK: FROM x 4 Neuro: CN 2-12 grossly intact, no new focal deficits Psych: calm - Constitutional Vitals: Temp Pulse Resp BP Pulse Ox 98.3 F 90 20 151/79 98 05/16/18 08:59 05/16/18 08:59 05/16/18 08:59 05/16/18 08:59 05/16/18 08:59 General appearance: Present: no acute distress Results - Labs CBC & Chem 7: 05/15/18 04:31 05/15/18 04:31 Labs: Laboratory Last Values WBC 7.2 K/mm3 (4.5-11.0) 05/15/18 04:31 RBC 3.51 M/mm3 (3.65-5.03) L 05/15/18 04:31 Hgb 7.9 gm/dl (10.1-14.3) L 05/15/18 04:31 Hct 25.3 % (30.3-42.9) L 05/15/18 04:31 MCV 72 fl (79-97) L 05/15/18 04:31 MCH 22 pg (28-32) L 05/15/18 04:31 MCHC 31 % (30-34) 05/15/18 04:31 RDW 21.2 % (13.2-15.2) H 05/15/18 04:31 Plt Count 210 K/mm3 (140-440) 05/15/18 04:31 Lymph % (Auto) 23.3 % (13.4-35.0) 05/15/18 04:31 [place] % (Auto) 8.7 % (0.0-7.3) H 05/15/18 04:31 Eos % (Auto) 2.7 % (0.0-4.3) 05/15/18 04:31 Baso % (Auto) 0.5 % (0.0-1.8) 05/15/18 04:31 Lymph # 1.7 K/mm3 (1.2-5.4) 05/15/18 04:31 [place] # 0.6 K/mm3 (0.0-0.8) 05/15/18 04:31 Eos # 0.2 K/mm3 (0.0-0.4) 05/15/18 04:31 Baso # 0.0 K/mm3 (0.0-0.1) 05/15/18 04:31 Seg Neutrophils % 64.8 % (40.0-70.0) 05/15/18 04:31 Seg Neutrophils # 4.7 K/mm3 (1.8-7.7) 05/15/18 04:31 PT 12.8 Sec. (12.2-14.9) 05/14/18 04:12 INR 0.91 (0.87-1.13) 05/14/18 04:12 APTT 28.0 Sec. (24.2-36.6) 05/14/18 04:12 D-Dimer < 135 ng/mlDDU (0-234) 05/14/18 04:12 Sodium 138 mmol/L (137-145) 05/15/18 04:31 Potassium 3.4 mmol/L (3.6-5.0) L 05/15/18 04:31 Chloride 102.2 mmol/L (98-107) 05/15/18 04:31 Carbon Dioxide 23 mmol/L (22-30) 05/15/18 04:31 Anion Gap 16 mmol/L 05/15/18 04:31 BUN 5 mg/dL (7-17) L 05/15/18 04:31 Creatinine 0.3 mg/dL (0.7-1.2) L 05/15/18 04:31 Estimated GFR > 60 ml/min 05/15/18 04:31 BUN/Creatinine Ratio 17 % 05/15/18 04:31 Glucose 97 mg/dL (65-100) 05/15/18 04:31 Uric Acid 3.0 mg/dL (3.5-7.6) L 05/15/18 15:42 Calcium 8.7 mg/dL (8.4-10.2) 05/15/18 04:31 AST 20 units/L (5-40) 05/15/18 15:42 ALT 24 units/L (7-56) 05/15/18 15:42 Total Creatine Kinase 54 units/L (30-135) 05/14/18 16:55 CK-MB (CK-2) 1.4 ng/mL (0.0-4.0) 05/14/18 16:55 CK-MB (CK-2) Rel Index 2.5 (0-4) 05/14/18 16:55 Troponin T < 0.010 ng/mL (0.00-0.029) 05/14/18 16:55 HCG, Quant [id number] mIU/mL (0-4) H 05/14/18 03:20
--- NOTE | 2018-05-16 12:42 | Progress Note ---
Assessment and Plan Her chest pain has resolved. Her BP has improved. Increase nifedipine XL 90 mg daily. She may be discharged home from a cardiac standpoint to follow up at my office in one week. Further adjustments in her antihypertensive regimen will be made as an outpatient. - Patient Problems (1) Chest pain Current Visit: Yes Status: Resolved (2) Uncontrolled hypertension Current Visit: Yes Status: Chronic (3) Twin gestation in first trimester Current Visit: Yes Status: Chronic (4) Hypertensive heart disease Current Visit: Yes Status: Chronic (5) Asthma Current Visit: Yes Status: Chronic Qualifiers: Asthma severity: mild (6) Morbid obesity Current Visit: Yes Status: Chronic Subjective Date of service: 05/16/18 Principal diagnosis: CP, Uncontrolled HTN, HTNsive heart disease, Twin Interval history: New complaint. I have reviewed her echo findings with her which showed normal LV systolic function with moderate LVH. Objective Vital Signs Temp Pulse Pulse Resp BP BP Pulse Ox 05/16/18 08:59 98.3 F 90 20 151/79 98 05/16/18 04:14 98.6 F 16 148/78 05/16/18 00:11 98.2 F 89 18 147/77 95 05/15/18 22:10 86 16 98 05/15/18 21:55 98 05/15/18 21:44 86 146/75 05/15/18 20:01 97.2 F L 85 16 146/75 98 05/15/18 20:00 85 05/15/18 15:02 98.6 F 87 18 96 05/15/18 15:00 100.9 F H 20 114/57 - Physical Examination General: No Apparent Distress HEENT: Positive: EOMI, Normocephaly, Mucus Membranes Moist Neck: Positive: neck supple, trachea midline Cardiac: Positive: Reg Rate and Rhythm, S1/S2 Lungs: Positive: clear to auscultation Neuro: Positive: Grossly Intact Abdomen: Positive: Soft, Active Bowel Sounds. Negative: Tender Skin: Positive: Clear. Negative: Rash Musculoskeletal: Normal Range of Motion Extremities: Present: normal. Absent: edema - Labs and Meds Cardiac Enzymes 05/15/18 Range/Units 15:42 AST 20 (5-40) units/L Comprehensive Metabolic Panel 05/15/18 Range/Units 15:42 AST 20 (5-40) units/L ALT 24 (7-56) units/L - Imaging and Cardiology EKG: image reviewed - Telemetry EKG Rhythm: Sinus Rhythm - EKG Sinus rhythms and dysrhythmias: sinus tachycardia
--- NOTE | 2018-05-16 14:08 | Progress Note ---
Assessment and Plan - Patient Problems (1) Anemia Current Visit: Yes Status: Acute (2) Chest pain Current Visit: Yes Status: Resolved (3) Twin gestation in first trimester Current Visit: Yes Status: Chronic Plan to address problem: patient can followup outpatient once obstetrical care is established will arrange for evaluation by maternal medicine (4) Uncontrolled hypertension Current Visit: Yes Status: Chronic Subjective - Subjective Date of service: 05/16/18 Principal diagnosis: CP, Uncontrolled HTN, HTNsive heart disease, Twin Interval history: Patient states feeling better today. Having intermittent nausea likely related to . Patient reports: no new complaints Objective - Vital Signs Vital Signs: Vital Signs - 12hr 05/16/18 05/16/18 05/16/18 04:14 08:00 08:59 Temperature 98.6 F 97.3 F L 98.3 F Pulse Rate 92 H 90 Respiratory 16 18 20 Rate Blood Pressure 148/78 151/79 Blood Pressure 132/68 [Left] O2 Sat by Pulse 97 98 Oximetry 05/16/18 10:00 Temperature Pulse Rate 86 Respiratory 20 Rate Blood Pressure Blood Pressure [Left] O2 Sat by Pulse 98 Oximetry - Labs Labs: Abnormal Labs 05/14/18 05/14/18 05/14/18 03:20 03:20 03:20 RBC Hgb 8.4 L Hct 26.8 L MCV 72 L MCH 22 L RDW 20.6 H [place] % (Auto) 8.3 H Sodium 136 L Potassium 3.2 L BUN 6 L Creatinine 0.3 L Glucose 146 H Uric Acid HCG, Quant [id number] H 05/15/18 05/15/18 05/15/18 04:31 04:31 15:42 RBC 3.51 L Hgb 7.9 L Hct 25.3 L MCV 72 L MCH 22 L RDW 21.2 H [place] % (Auto) 8.7 H Sodium Potassium 3.4 L BUN 5 L Creatinine 0.3 L Glucose Uric Acid 3.0 L HCG, Quant Laboratory Results - last 24 hr 05/15/18 15:42 Uric Acid 3.0 L AST 20 ALT 24
[2018-05-17 02:37] LABS: Creatinine 24 Hour,Urine 1.9 (0.8-2.8); Creatinine,Urine 45.1 mg/dL (0.1-20.0)
[2018-05-17] MEDS: LOVENOX SUB-Q SCH (09:42)
[2018-05-17] MEDS: PRENATAL VITAMIN PO SCH ×2 (09:42)
[2018-05-17] MEDS: NORMODYNE PO SCH (09:42)
[2018-05-17] MEDS: SODIUM CHLORIDE FLUSH SYRINGE 10 ML IV SCH (09:43)
[2018-05-17] MEDS ORDERED: PROCARDIA XL PO SCH (11:00)
--- NOTE | 2018-05-17 13:21 | Progress Note ---
Assessment and Plan Assessment and plan: Patient is 38-year-old woman with a history of hypertension and asthma who presented to [facility] ED with chest pains. She reports being 12 weeks with twins. * 2D ECHO: moderate concentric LVH, trace TR, estimated EF 60-65%, RV mildly dilated, RVSF normal -Hypertension urgency, still uncontrolled: Cardiology increased antihypertensives and I also consulted boom stick worker -Chest pain secondary to #1 -12 weeks , high risk: consulted oleo hasher and renderer, they are screening for pre- eclampsia, started pre- vitamins -Morbid obese, bmi 58 Bp still not at goal, SBP of 140 or less per Cardiology: Her chest pain has resolved. Her BP has improved. Increase nifedipine XL 90 mg daily. She may be discharged home from a cardiac standpoint to follow up at my office in one week. Further adjustments in her antihypertensive regimen will be made as an outpatient. History Interval history: Patient was seen and examined. Follow-up on current diagnosis of chest pains, resolved. Overnight uneventful. Patient denies any shortness breath, nausea/vomiting or severe headaches. Imaging, nursing note, chart, labs and old chart reviewed. Discussed with patient. Hospitalist Physical - Physical exam Narrative exam: Gen: WDWN, NAD, Awake, Alert, Orientated x 3, bmi 58 HEENT: NCAT, EOMI, PERRL, OP Clear Neck: supple, no adenopathy, no thyromegaly, no JVD CVS/Heart: RRR, normal S1S2, pulses present bilaterally Chest/Lungs: CTA B, Symmetrical chest expansion, good air entry bilaterally GI/Abdomen: soft, NTND, good bowel sounds, no guarding or rebound /Bladder: no suprapubic tenderness, no CVA or paraspinal tenderness Extermity/Skin: no c/c/e, no obvious rash MSK: FROM x 4 Neuro: CN 2-12 grossly intact, no new focal deficits Psych: calm - Constitutional Vitals: Temp Pulse Resp BP Pulse Ox 99.4 F 83 18 136/73 96 05/17/18 11:36 05/17/18 11:36 05/17/18 11:36 05/17/18 11:36 05/17/18 11:36 General appearance: Present: no acute distress Results - Labs CBC & Chem 7: 05/15/18 04:31 05/15/18 04:31 Labs: Laboratory Last Values WBC 7.2 K/mm3 (4.5-11.0) 05/15/18 04:31 RBC 3.51 M/mm3 (3.65-5.03) L 05/15/18 04:31 Hgb 7.9 gm/dl (10.1-14.3) L 05/15/18 04:31 Hct 25.3 % (30.3-42.9) L 05/15/18 04:31 MCV 72 fl (79-97) L 05/15/18 04:31 MCH 22 pg (28-32) L 05/15/18 04:31 MCHC 31 % (30-34) 05/15/18 04:31 RDW 21.2 % (13.2-15.2) H 05/15/18 04:31 Plt Count 210 K/mm3 (140-440) 05/15/18 04:31 Lymph % (Auto) 23.3 % (13.4-35.0) 05/15/18 04:31 [place] % (Auto) 8.7 % (0.0-7.3) H 05/15/18 04:31 Eos % (Auto) 2.7 % (0.0-4.3) 05/15/18 04:31 Baso % (Auto) 0.5 % (0.0-1.8) 05/15/18 04:31 Lymph # 1.7 K/mm3 (1.2-5.4) 05/15/18 04:31 [place] # 0.6 K/mm3 (0.0-0.8) 05/15/18 04:31 Eos # 0.2 K/mm3 (0.0-0.4) 05/15/18 04:31 Baso # 0.0 K/mm3 (0.0-0.1) 05/15/18 04:31 Seg Neutrophils % 64.8 % (40.0-70.0) 05/15/18 04:31 Seg Neutrophils # 4.7 K/mm3 (1.8-7.7) 05/15/18 04:31 PT 12.8 Sec. (12.2-14.9) 05/14/18 04:12 INR 0.91 (0.87-1.13) 05/14/18 04:12 APTT 28.0 Sec. (24.2-36.6) 05/14/18 04:12 D-Dimer < 135 ng/mlDDU (0-234) 05/14/18 04:12 Sodium 138 mmol/L (137-145) 05/15/18 04:31 Potassium 3.4 mmol/L (3.6-5.0) L 05/15/18 04:31 Chloride 102.2 mmol/L (98-107) 05/15/18 04:31 Carbon Dioxide 23 mmol/L (22-30) 05/15/18 04:31 Anion Gap 16 mmol/L 05/15/18 04:31 BUN 5 mg/dL (7-17) L 05/15/18 04:31 Creatinine 0.3 mg/dL (0.7-1.2) L 05/15/18 04:31 Estimated GFR > 60 ml/min 05/15/18 04:31 BUN/Creatinine Ratio 17 % 05/15/18 04:31 Glucose 97 mg/dL (65-100) 05/15/18 04:31 Uric Acid 3.0 mg/dL (3.5-7.6) L 05/15/18 15:42 Calcium 8.7 mg/dL (8.4-10.2) 05/15/18 04:31 AST 20 units/L (5-40) 05/15/18 15:42 ALT 24 units/L (7-56) 05/15/18 15:42 Total Creatine Kinase 54 units/L (30-135) 05/14/18 16:55 CK-MB (CK-2) 1.4 ng/mL (0.0-4.0) 05/14/18 16:55 CK-MB (CK-2) Rel Index 2.5 (0-4) 05/14/18 16:55 Troponin T < 0.010 ng/mL (0.00-0.029) 05/14/18 16:55 HCG, Quant [id number] mIU/mL (0-4) H 05/14/18 03:20 Urine Total Volume 4200 ml 05/15/18 13:43 Urine Creatinine 45.1 mg/dL (0.1-20.0) H 05/15/18 13:43 Ur Creatinine 24 Hour 1.9 (0.8-2.8) 05/15/18 13:43 Ur Total Protein 24 Hr 420.00 mg/dL (2-200) H 05/15/18 13:43 Urine Total Protein 10 mg/dL (5-11.8) 05/15/18 13:43
--- NOTE | 2018-05-17 13:26 | Discharge Summary ---
Providers - Providers Date of Admission: 05/14/18 06:07 Date of discharge: 05/17/18 Attending physician: RADHA SALOMON 05/14/18 06:07 Consult to Physician [CONS] Routine Comment: Consulting Provider: ANAHI GUTHRIE Physician Instructions: Reason For Exam: cp 05/15/18 12:28 Consult to Physician [CONS] Routine Comment: Consulting Provider: ELAINE HENNING Physician Instructions: Reason For Exam: , no core feeder [facility] Condition: Stable Hospital course: Patient is 38-year-old woman with a history of hypertension and asthma who presented to [facility] ED with chest pains. She reports being 12 weeks with twins. * 2D ECHO: moderate concentric LVH, trace TR, estimated EF 60-65%, RV mildly dilated, RVSF normal -Hypertension urgency, still uncontrolled: Cardiology increased antihypertensives and I also consulted core feeder -Chest pain secondary to #1 -12 weeks , high risk: consulted ethologist, they are screening for pre- eclampsia, started pre-ekaterina vitamins -Morbid obese, bmi 58 Bp still not at goal, SBP of 140 or less per Cardiology: Her chest pain has resolved. Her BP has improved. Increase nifedipine XL 90 mg daily. She may be discharged home from a cardiac standpoint to follow up at my office in one week. Further adjustments in her antihypertensive regimen will be made as an outpatient. Disposition: DC-01 TO HOME OR SELFCARE Time spent for discharge: 35 minutes Core Measure Documentation - Palliative Care Palliative Care/ Comfort Measures: Not Applicable - Core Measures Any of the following diagnoses?: none - VTE Discharge Requirements Deep Vein Thrombosis/Pulmonary Embolism Present on Admission: No Has pt received <5 days of overlap therapy or INR<2.0: No Anticoagulant overlap therapy prescribed at discharge: No Contraindication No Overlap Therapy order at DC: Not Indicated Exam - Physical Exam Narrative exam: Gen: WDWN, NAD, Awake, Alert, Orientated x 3, bmi 58 HEENT: NCAT, EOMI, PERRL, OP Clear Neck: supple, no adenopathy, no thyromegaly, no JVD CVS/Heart: RRR, normal S1S2, pulses present bilaterally Chest/Lungs: CTA B, Symmetrical chest expansion, good air entry bilaterally GI/Abdomen: soft, NTND, good bowel sounds, no guarding or rebound /Bladder: no suprapubic tenderness, no CVA or paraspinal tenderness Extermity/Skin: no c/c/e, no obvious rash MSK: FROM x 4 Neuro: CN 2-12 grossly intact, no new focal deficits Psych: calm - Constitutional Vitals: Temp Pulse Resp BP Pulse Ox 99.4 F 83 18 136/73 96 05/17/18 11:36 05/17/18 11:36 05/17/18 11:36 05/17/18 11:36 05/17/18 11:36 Plan Activity: other (no strenous activity ) Diet: low salt Special Instructions: record daily BP diary Follow up with: JOSÉ MIGUEL ROSALESGARYSBURG MD FRANSISCO [Primary Care Provider] - 7 Days ANAHI GUTHRIE MD [Staff Physician] - 7 Days HENRY JAIMES MD [Staff Physician] - 7 Days Prescriptions: Labetalol [Normodyne TAB] 400 mg PO BID 30 Days tablet NIFEdipine XL [Procardia Xl] 90 mg PO QDAY #30 tablet
[2018-05-17 14:53] VITALS: BP 103/53
== END 2018-05-17 15:04 | disposition home or self-care (01) | DRG 833 ==
LOC: ED 02:13 → SUATTDRO 02:13 → 4A 06:07 → 3A 05-16 18:26
PROVIDERS: ADMIT Internal Medicine; ATTEND Internal Medicine
DX: O10.111 Pre-existing hypertensive heart disease complicating pregnancy, first trimester (principal); I16.0 Hypertensive urgency; F17.200 Nicotine dependence, unspecified, uncomplicated; E66.01 Morbid (severe) obesity due to excess calories; O34.11 Maternal care for benign tumor of corpus uteri, first trimester; D64.9 Anemia, unspecified; D25.9 Leiomyoma of uterus, unspecified; O99.211 Obesity complicating pregnancy, first trimester; O99.511 Diseases of the respiratory system complicating pregnancy, first trimester; O99.331 Smoking (tobacco) complicating pregnancy, first trimester; O99.011 Anemia complicating pregnancy, first trimester; O30.041 Twin pregnancy, dichorionic/diamniotic, first trimester; J45.909 Unspecified asthma, uncomplicated; Z82.49 Family history of ischemic heart disease and other diseases of the circulatory system; Z88.6 Allergy status to analgesic agent; Z87.442 Personal history of urinary calculi; Z88.5 Allergy status to narcotic agent; Z88.0 Allergy status to penicillin; Z79.899 Other long term (current) drug therapy; Z3A.12 12 weeks gestation of pregnancy
CPT/HCPCS: 36415; 71045; 76801; 76802; 76817; 80048; 82550; 82553; 82570; 84156; 84450; 84460; 84484; 84550; 84702; 85025; 85379; 85610; 85730; 93005; 93010; 93306; 96374; 99285; G0378; J1650